=== PATIENT | female | born 2000 | race Caucasian/White ===

== ENCOUNTER 2024-08-07 10:26 | Outpatient (REF) | payer OTHER, SELFPAY ==
[2024-08-07 13:38] LABS: MANUAL DIFF FLAG NO
[2024-08-07 13:49] LABS: Basophils Absolute Auto 0.1 X10*3/uL (0.0-0.2); Basophils Percent Auto 0.6 % (0-2); Eosinophils Absolute Auto 0.2 X10*3/uL (0.0-0.4); Eosinophils Percent Auto 2.2 % (0-4); Hemoglobin 14.9 g/dl (12.0-16.0); Imm Gran Abs Auto 0.05 X10*3/uL (0.00-0.03); Imm Gran Pct Auto 0.6 % (0.0-0.4); Lymphocytes Absolute Auto 2.6 X10*3/uL (1.2-4.9); Lymphocytes Percent Auto 31.2 % (20-40); Mean Corpuscular HGB Conc 33.9 g/dl (31.0-35.0); Mean Corpuscular Hemoglobin 28.8 pg (27.0-33.0); Mean Corpuscular Volume 84.9 fL (80.0-98.0); Mean Platelet Volume 9.9 fL (9.4-12.3); Monocytes Absolute Auto 0.5 X10*3/uL (0.1-1.2); Monocytes Percent Auto 5.7 % (2-11); Neutrophils Absolute Auto 4.9 x10*3/uL (2.0-8.3); Neutrophils Percent Auto 59.7 % (45-73); Platelet Count 262 X10*3/uL (160-400); Red Blood Count 5.18 X10*6/uL (4.20-5.50); Red Cell Distribution Width 12.3 % (11.0-16.0); White Blood Count 8.2 X10*3/uL (4.8-10.8)
[2024-08-07 13:51] LABS: Urine Pregnancy NEGATIVE (NEGATIVE)
[2024-08-07 13:52] LABS: UPreg QC Valid YES
[2024-08-07 14:38] LABS: Vitamin B12 341 pg/mL (200-900)
[2024-08-07 14:39] LABS: Potassium 3.9 mmol/L (3.3-5.1); Sodium 140 mmol/L (135-145)
[2024-08-07 14:40] LABS: Alanine Aminotransferase 23 U/L (0-31); Albumin Level 4.7 g/dL (3.5-5.0); Alkaline Phosphatase 85 U/L (39-117); Anion Gap 13 (12-20); Aspartate Amino Transferase 17 U/L (5-31); Bilirubin Total 0.5 mg/dL (0.0-1.0); Blood Urea Nitrogen 9 mg/dL (9-16); Calcium 10.4 mg/dL (8.4-10.2); Carbon Dioxide 27 mmol/L (22-29); Chloride 104 mmol/L (96-108); Estimated Glomerular Filt Rate > 60; Glucose Random 92 mg/dL (60-115); Thyroid Stimulating Hormone 1.73 uIU/mL (0.32-4.0); Total Protein 7.9 g/dL (6.5-8.0)
[2024-08-11 21:29] LABS: Oxcarbazepine 11.3 mcg/mL (8.0-35.0)
== END 2024-08-07 10:27 | disposition home or self-care (01) ==
LOC: HO.HMGCLDS 10:26
PROVIDERS: Visit Provider Registered Nurse
DX: F34.0 Cyclothymic disorder (principal); F41.1 Generalized anxiety disorder; G47.09 Other insomnia; F43.12 Post-traumatic stress disorder, chronic
CPT/HCPCS: 36415; 80053; 80339; 81025; 82607; 82746; 84443; 85025